=== PATIENT | female | born 1980 | race Caucasian/White ===

== ENCOUNTER → 2017-03-08 | Outpatient (CLI) | payer OTHER ==
[~2017-03-08] MED LIST: AMOX500T2 PO; CA C1TAB80 PO; CATHETER FLUSH 10 ML SYR IV PRN; IOHEXOL 350 MG/ML 100 ML (OMNIPAQUE 350) VIAL IV ONE; LINA145C PO; NS 100 ML (IVPB) BAG IV ONE; POLY119P5 PO; PRD20T PO; PRENATAL VITAMINS; XANAX
[2017-03-08 09:14] LABS: MEAN PLATELET VOLUME 10.5 FL (7.4-10.4); RED BLOOD COUNT 4.35 10^6/uL (4.35-5.85); RED CELL DISTRIBUTION WIDTH 14.9 % (10.0-14.5); WHITE BLOOD COUNT 8.5 10^3/uL (4.3-11.0)
[2017-03-08 09:27] LABS: ALANINE AMINOTRANSFERASE 10 U/L (0-55); ALBUMIN 4.1 G/DL (3.2-4.5); ANION GAP 7 MMOL/L (5-14); ASPARTATE AMINO TRANSFERASE 18 U/L (5-34); BILIRUBIN,TOTAL 2.3 MG/DL (0.1-1.0); BLOOD UREA NITROGEN 8 MG/DL (7-18); BUN/CREATININE RATIO 9; CALCIUM 8.7 MG/DL (8.5-10.1); CARBON DIOXIDE 26 MMOL/L (21-32); CHLORIDE 107 MMOL/L (98-107); CREATININE SERUM 0.87 MG/DL (0.60-1.30); GFR ESTIMATED > 60; GLUCOSE 80 MG/DL (70-105); POTASSIUM 3.7 MMOL/L (3.6-5.0); SODIUM 140 MMOL/L (135-145); TOTAL PROTEIN 6.2 G/DL (6.4-8.2)
--- NOTE | 2017-03-08 11:53 | Diagnostic Imaging Report ---
PROCEDURE: CT abdomen and pelvis with contrast. TECHNIQUE: Multiple contiguous axial images were obtained through the abdomen and pelvis after administration of intravenous contrast. INDICATION: Abdominal pain. 100 mL of Omnipaque 350 is administered intravenously. COMPARISON: Comparison exam from 08/15/2013 is reviewed. FINDINGS: The lung bases are clear. The liver, the gallbladder, the spleen, and adrenal glands appear unremarkable. The kidneys have symmetric enhancement and contrast excretion. There is a 8 mm lower pole right kidney hypodense lesion too small to accurately characterize slightly more prominent compared to 2013, it is likely a cyst. The abdominal aorta is normal in caliber. No para-aortic significantly enlarged lymph node is seen. There is a small amount of free fluid in the pelvis in the cul-de-sac and superior to the urinary bladder. Adjacent right ovarian prominent follicle measuring 2.6 cm immediately beside the fluid superior to the urinary bladder is seen likely related to partially ruptured follicle or ovarian cyst. There is no solid mass identified. No bowel obstruction. The appendix appears normal. The osseous structures appear grossly unremarkable. IMPRESSION: Small to moderate amount of free pelvic fluid in the pelvis and the cul-de-sac and adjacent to the right ovary likely related to a right ovarian cyst. Dictated by: Dictated on workstation # [id number]
== END ==
LOC: RAD 08:47
PROVIDERS: ATTEND Nurse Practitioner
DX: R10.9 Unspecified abdominal pain (principal)
CPT/HCPCS: 36415; 74177; 80053; 85027

== ENCOUNTER 2017-05-06 06:24 | Emergency (ER) | payer SELFPAY ==
[~2017-05-06] VITALS: Ht 160 cm; Wt 52.2 kg
[~2017-05-06 06:24] MED LIST changes: -CATHETER FLUSH 10 ML SYR IV PRN; -IOHEXOL 350 MG/ML 100 ML (OMNIPAQUE 350) VIAL IV ONE; -NS 100 ML (IVPB) BAG IV ONE
--- NOTE | 2017-05-06 06:55 | ED EENT ---
History of Present Illness General Chief Complaint: Ear Problems Stated Complaint: LEFT EAR PAIN Nursing Triage Note: PATIENT C/O LEFT EAR PAIN AND STATES THAT IT WOKE HER UP AT 0600. SHE STATES THAT SHE WAS FINE WHEN SHE WENT TO BED LAST NIGHT. Source: patient Exam Limitations: no limitations History of Present Illness Time seen by provider: 06:51 Initial Comments The patient is a 36-year-old white female who presents with complaints of left ear pain. She reports that she was awakened at 0600 with excruciating pain in her left ear. She denies any upper respiratory infections sinus infections fever. There has been no drainage. Timing/Duration: abrupt, this morning Location: ear (L) Prearrival Treatment: no prearrival treatment Associated Symptoms: denies symptoms Allergies and Home Medications Allergies Coded Allergies: NKANo Known Allergies (Verified Allergy, Unknown, 03/02/07) Home Medications Amoxicillin 500 Mg Tablet, 500 MG PO BID, (Reported) take for 10 days, started 02/24/16 Ca Carbonate/Vitamin D3/Vit K 1 Each Tab.chew, 1 EACH PO DAILY, (Reported) Linaclotide 145 Mcg Capsule, 145 MCG PO DAILY, (Reported) Polyethylene Glycol 3350 119 Gm Powder, 7 GM PO DAILY, (Reported) Review of Systems Constitutional: no symptoms reported Eyes: No Symptoms Reported Ears: See HPI Nose: no symptoms reported Mouth: no symptoms reported Throat: no symptoms reported Respiratory: no symptoms reported Cardiovascular: no symptoms reported Past Bonbmao-Igkdff-Xriiln Hx Patient Social History Alcohol Use: Denies Use Recreational Drug Use: Yes Smoking Status: Current Everyday Smoker Type Used: Cigarettes Recent Foreign Travel: No Contact w/Someone Who Travel: No Recent Infectious Disease Expo: No Recent Hopitalizations: No Surgeries HX Surgeries: Yes (WISDOM TEETH, LSO, BLADDER TIE UP X2) Respiratory Hx Respiratory Disorders: No (EXCERISED INDUCED ASTHMA) Respiratory Disorders: Asthma Cardiovascular Hx Cardiac Disorders: No Neurological Hx Neurological Disorders: Yes Reproductive System Female Reproductive Disorders: Endometriosis Genitourinary Hx Genitourinary Disorders: Yes Gastrointestinal Hx Gastrointestinal Disorders: No (ABD PAIN, CHRONIC CONSTIPATION) Gastrointestinal Disorders: Chronic Constipation Musculoskeletal Hx Musculoskeletal Disorders: No Endocrine Hx Endocrine Disorders: No Psychosocial Hx Psychiatric Problems: Yes Physical Exam Vital Signs Vital Sign - Last 12Hours 05/06/17 06:31 Temp 98.0 Pulse 79 Resp 16 B/P (MAP) 101/65 Pulse Ox 98 O2 Delivery Room Air General Appearance: mild distress Eyes: bilateral eye normal inspection Ears: left ear foreign body Nose: normal inspection Mouth/Throat: normal mouth inspection, pharynx normal, dental tenderness, excessive drooling, foreign body, mandibular swelling Neck: non-tender, full range of motion, supple, normal inspection Cardiovascular: normal peripheral pulses, regular rate, rhythm, no edema, no gallop, no JVD, no murmur Respiratory: chest non-tender, lungs clear, normal breath sounds, no respiratory distress, no accessory muscle use Impaction the left ear canal consistent with cerumen Progress/Results/Core Measures Results/Orders My Orders Orders - ERENDIRA GOMEZ MD Docusate Sodium Oral Solution (Colace Or (05/06/17 06:58) Medications Given in ED Current Medications Medications Dose Ordered Sig/Toyin Route Start Time Stop Time Status Last Admin Dose Admin Docusate Sodium 100 mg STK-MED ONCE .ROUTE 05/06/17 06:58 05/06/17 07:03 DC 05/06/17 07:05 100 MG Vital Signs/I&O Vital Sign - Last 12Hours 05/06/17 06:31 Temp 98.0 Pulse 79 Resp 16 B/P (MAP) 101/65 Pulse Ox 98 O2 Delivery Room Air Blood Pressure Mean: 77 Departure Communication Progress Notes The cerumen was softened with docusate over 30 minutes. The canal was then irrigated with some return. It was then possible to see the TM partially. Additional docusate will be instilled at home. Impression Impression: Primary Impression: Impacted cerumen Disposition: 01 HOME, SELF-CARE Condition: Stable/Unchanged Departure-Patient Inst. Referrals: NICHOLE FREEMAN DO (PCP) Primary Care Physician REJI KNOX APRN (Family) Primary Care Physician Patient Instructions: Ear Wax Impaction (DC) Add. Discharge Instructions: All discharge instructions reviewed with patient and/or family. Voiced understanding. On return here home instill more docusate and leave it for 30 minutes to an hour. You may then attempted to irrigate again. ERENDIRA GOMEZ MD May 06, 2017 06:55
[2017-05-06] MEDS ORDERED: DOCUSATE SODIUM 10 MG/ML 10 ML UDC (COLACE) ONE (06:58)
[2017-05-06 08:15] VITALS: BP 101/65
--- OUTSIDE RECORDS SUMMARY | 2017-05-11 18:43 | XMS REPORT | Continuity of Care Document ---
Author Author [facility] Address Unknown Phone Unavailable Allergies Active Description Code Type Severity Reaction Onset Reported/Identified Relationship to Patient Clinical Status Yes NKANo Known Allergies NKA Miscellaneous Allergy Unknown N/ A 03/02/2007 Medications Problems Date Dx Coded Attending Type Code Diagnosis Diagnosed By 11/27/2009 RAYMUNDO OLIVAS APRN A 789.00 abdominal pain 11/27/2009 NICHOLE FREEMAN DO K 789.00 abdominal pain 11/27/2009 AYESHA FREEMAN DOA K 789.00 abdominal pain 11/27/2009 FREEMAN AYESHA CUIA K 789.00 abdominal pain 11/27/2009 VEGA WAN, SYEDA A 789.00 abdominal pain 11/27/2009 VEGA WAN, SYEDA A 789.00 abdominal pain 11/27/2009 FREEMAN AYESHA CUIA K 789.00 abdominal pain 04/16/2011 SUMMER OLIVAS APRNYL A 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) 04/16/2011 FREEMAN DO NICHOLE K 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) 04/16/2011 FREEMAN AYESHA CUIA K 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) 04/16/2011 FREEMAN AYESHA CUIA K 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) 04/16/2011 VEGA APRN, SYEDA A 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) 04/16/2011 VEGA APRN, SYEDA A 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) 04/16/2011 FREEMAN AYESHA CUIA K 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) 08/04/2011 RAYMUNDO OLIVAS APRN E905.1 INJURY CAUSED BY ANIMAL VENOMOUS SPIDER BITE 08/04/2011 NICHOLE FREEMAN DO E905.1 INJURY CAUSED BY ANIMAL VENOMOUS SPIDER BITE 08/04/2011 FREEMAN DO, NICHOLE K E905.1 INJURY CAUSED BY ANIMAL VENOMOUS SPIDER BITE 08/04/2011 FREEMAN DO, NICHOLE K E905.1 INJURY CAUSED BY ANIMAL VENOMOUS SPIDER BITE 08/04/2011 VEGA SALES CONSULTING DIRECTOR, SYEDA A E905.1 INJURY CAUSED BY ANIMAL VENOMOUS SPIDER BITE 08/04/2011 VEGA SALES CONSULTING DIRECTOR, SYEDA A E905.1 INJURY CAUSED BY ANIMAL VENOMOUS SPIDER BITE 08/04/2011 FREEMAN DO, NICHOLE K E905.1 INJURY CAUSED BY ANIMAL VENOMOUS SPIDER BITE 11/03/2011 RAJOTTE SALES CONSULTING DIRECTOR, RAYMUNOD A 599.0 URINARY TRACT INFECTION 11/03/2011 RAJOTTE SALES CONSULTING DIRECTOR, RAYMUNDO A 788.1 pain during urination (dysuria) 11/03/2011 FREEMAN DO, NICHOLE K 599.0 URINARY TRACT INFECTION 11/03/2011 FREEMAN DO, NICHOLE K 788.1 pain during urination (dysuria) 11/03/2011 FREEMAN DO, NICHOLE K 599.0 URINARY TRACT INFECTION 11/03/2011 FREEMAN DO, NICHOLE K 788.1 pain during urination (dysuria) 11/03/2011 FREEMAN DO, NICHOLE K 599.0 URINARY TRACT INFECTION 11/03/2011 FREEMAN DO, NICHOLE K 788.1 pain during urination (dysuria) 11/03/2011 VEGA SALES CONSULTING DIRECTOR, SYEDA A 599.0 URINARY TRACT INFECTION 11/03/2011 VEGA SALES CONSULTING DIRECTOR, SYEDA A 788.1 pain during urination (dysuria) 11/03/2011 VEGA SALES CONSULTING DIRECTOR, SYEDA A 599.0 URINARY TRACT INFECTION 11/03/2011 VEGA SALES CONSULTING DIRECTOR, SYEDA A 788.1 pain during urination (dysuria) 11/03/2011 FREEMAN DO, NICHOLE K 599.0 URINARY TRACT INFECTION 11/03/2011 FREEMAN DO, NICHOLE K 788.1 pain during urination (dysuria) 07/04/2012 RAJVINAYAKE SALES CONSULTING DIRECTOR, RAYMUNDO A 729.5 PAIN IN LIMB 07/04/2012 FREEMAN DO, NICHOLE K 729.5 PAIN IN LIMB 07/04/2012 FREEMAN DO, NICHOLE K 729.5 PAIN IN LIMB 07/04/2012 FREEMAN DO, NICHOLE K 729.5 PAIN IN LIMB 07/04/2012 VEGA SALES CONSULTING DIRECTOR, SYEDA A 729.5 PAIN IN LIMB 07/04/2012 VEGA SALES CONSULTING DIRECTOR, SYEDA A 729.5 PAIN IN LIMB 07/04/2012 FREEMAN DO, NICHOLE K 729.5 PAIN IN LIMB 04/28/2013 RAJOTTE SALES CONSULTING DIRECTOR, RAYMUNDO A 305.1 TOBACCO ABUSE 04/28/2013 RAJOTTE SALES CONSULTING DIRECTOR, RAYMUNDO A 466.0 BRONCHITIS, ACUTE 04/28/2013 RAJOTTE SALES CONSULTING DIRECTOR, RAYMUNDO A E884.9 OTHER ACCIDENTAL FALL FROM ONE LEVEL TO ANOTHER 04/28/2013 RAJOTTE SALES CONSULTING DIRECTOR, RAYMUNDO A V65.42 COUNSELING - SMOKING CESSATION 04/28/2013 FREEMAN DO, NICHOLE K 305.1 TOBACCO ABUSE 04/28/2013 FREEMAN DO, NICHOLE K 466.0 BRONCHITIS, ACUTE 04/28/2013 FREEMAN DO, NICHOLE K E884.9 OTHER ACCIDENTAL FALL FROM ONE LEVEL TO ANOTHER 04/28/2013 FREEMAN DO, NICHOLE K V65.42 COUNSELING - SMOKING CESSATION 04/28/2013 FREEMAN DO, NICHOLE K 305.1 TOBACCO ABUSE 04/28/2013 FREEMAN DO, NICHOLE K 466.0 BRONCHITIS, ACUTE 04/28/2013 FREEMAN DO, NICHOLE K E884.9 OTHER ACCIDENTAL FALL FROM ONE LEVEL TO ANOTHER 04/28/2013 FREEMAN DO, NICHOLE K V65.42 COUNSELING - SMOKING CESSATION 04/28/2013 FREEMAN DO, NICHOLE K 305.1 TOBACCO ABUSE 04/28/2013 FREEMAN DO, NICHOLE K 466.0 BRONCHITIS, ACUTE 04/28/2013 FREEMAN DO, NICHOLE K E884.9 OTHER ACCIDENTAL FALL FROM ONE LEVEL TO ANOTHER 04/28/2013 FREEMAN DO, NICHOLE K V65.42 COUNSELING - SMOKING CESSATION 04/28/2013 VEGA SALES CONSULTING DIRECTOR, SYEDA A 305.1 TOBACCO ABUSE 04/28/2013 VEGA SALES CONSULTING DIRECTOR, SYEDA A 466.0 BRONCHITIS, ACUTE 04/28/2013 VEGA SALES CONSULTING DIRECTOR, SYEDA A E884.9 OTHER ACCIDENTAL FALL FROM ONE LEVEL TO ANOTHER 04/28/2013 VEGA SALES CONSULTING DIRECTOR, SYEDA A V65.42 COUNSELING - SMOKING CESSATION 04/28/2013 VEGA SALES CONSULTING DIRECTOR, SYEDA A 305.1 TOBACCO ABUSE 04/28/2013 VEGA SALES CONSULTING DIRECTOR, SYEAD A 466.0 BRONCHITIS, ACUTE 04/28/2013 VEGA SALES CONSULTING DIRECTOR, SYEDA A E884.9 OTHER ACCIDENTAL FALL FROM ONE LEVEL TO ANOTHER 04/28/2013 VEGA SALES CONSULTING DIRECTOR, SYEDA A V65.42 COUNSELING - SMOKING CESSATION 04/28/2013 FREEMAN DO, NICHOLE K 305.1 TOBACCO ABUSE 04/28/2013 FREEMAN DO, NICHOLE K 466.0 BRONCHITIS, ACUTE 04/28/2013 FREEMAN DO, NICHOLE K E884.9 OTHER ACCIDENTAL FALL FROM ONE LEVEL TO ANOTHER 04/28/2013 FREEMAN DO, NICHOLE K V65.42 COUNSELING - SMOKING CESSATION 08/15/2013 FREEMAN DO, NICHOLE K 789.07 ABDOMINAL PAIN GENERALIZED 08/15/2013 FREEMAN DO, NICHOLE K 789.07 ABDOMINAL PAIN GENERALIZED 08/15/2013 FREEMAN DO, NICHOLE K 789.07 ABDOMINAL PAIN GENERALIZED 08/15/2013 VEGA SALES CONSULTING DIRECTOR, SYEDA A 789.07 ABDOMINAL PAIN GENERALIZED 08/15/2013 VEGA SALES CONSULTING DIRECTOR, SYEDA A 789.07 ABDOMINAL PAIN GENERALIZED 08/15/2013 FREEMAN DO, NICHOLE K 789.07 ABDOMINAL PAIN GENERALIZED 10/17/2013 FREEMAN DO, NICHOLE K 611.71 MASTODYNIA 10/17/2013 FREEMAN DO, NICHOLE K 780.79 OTHER MALAISE AND FATIGUE 10/17/2013 FREEMAN DO, NICHOLE K 785.6 LYMPHADENOPATHY 10/17/2013 FREEMAN DO, NICHOLE K 611.71 MASTODYNIA 10/17/2013 FREEMAN DO, NICHOLE K 780.79 OTHER MALAISE AND FATIGUE 10/17/2013 FREEMAN DO, NICHOLE K 785.6 LYMPHADENOPATHY 10/17/2013 VEGA SALES CONSULTING DIRECTOR, SYEDA A 611.71 MASTODYNIA 10/17/2013 VEGA SALES CONSULTING DIRECTOR, SYEDA A 780.79 OTHER MALAISE AND FATIGUE 10/17/2013 VEGA SALES CONSULTING DIRECTOR, SYEDA A 785.6 LYMPHADENOPATHY 10/17/2013 VEGA SALES CONSULTING DIRECTOR, SYEDA A 611.71 MASTODYNIA 10/17/2013 VEGA SALES CONSULTING DIRECTOR, SYEDA A 780.79 OTHER MALAISE AND FATIGUE 10/17/2013 VEGA SALES CONSULTING DIRECTOR, SYEDA A 785.6 LYMPHADENOPATHY 10/17/2013 FREEMAN DO, NICHOLE K 611.71 MASTODYNIA 10/17/2013 FREEMAN DO, NICHOLE K 780.79 OTHER MALAISE AND FATIGUE 10/17/2013 NICHOLE FREEMAN DO K 785.6 LYMPHADENOPATHY 05/15/2014 VEGA WAN SYEDA A 788.1 DYSURIA 05/15/2014 NICHOLE FREEMAN DO K 788.1 DYSURIA 10/07/2014 Ot 729.5 10/07/2014 SHWETHA BLAIR SALES CONSULTING DIRECTOR Ot 620.2 10/07/2014 VINI PA CARLINE M Ot 611.71 10/07/2014 VINI PA, CARLINE M Ot V16.3 10/07/2014 VINI PA, CARLINE M Ot V16.41 10/09/2014 NICHOLE FREEMAN DO K 848.8 OTHER SPECIFIED SITES OF SPRAINS AND STRAINS 10/11/2014 Ot 729.5 10/11/2014 SHWETHA BLAIR SALES CONSULTING DIRECTOR Ot 620.2 10/11/2014 VINI PA CARLINE M Ot 611.71 10/11/2014 VINI PA CARLINE M Ot V16.3 10/11/2014 VINI PA, CARLINE M Ot V16.41 10/11/2014 Ot 729.5 10/11/2014 SHWETHA BLAIR SALES CONSULTING DIRECTOR Ot 620.2 10/11/2014 VINI PA, CARLINE M Ot 611.71 10/11/2014 VINI PA, CARLINE M Ot V16.3 10/11/2014 VINI PA, CARLINE M Ot V16.41 01/17/2016 Ot 729.5 01/17/2016 SHWETHA BLAIR SALES CONSULTING DIRECTOR Ot 620.2 01/17/2016 VINI PA CARLINE M Ot 611.71 01/17/2016 VINI PA, CARLINE M Ot V16.3 01/17/2016 VINI PA, CARLINE M Ot V16.41 01/20/2016 Ot 729.5 01/20/2016 SHWETHA BLAIR SALES CONSULTING DIRECTOR Ot 620.2 01/20/2016 VINI PA, CARLINE M Ot 611.71 01/20/2016 VINI PA, CARLINE M Ot V16.3 01/20/2016 VINI PA, CARLINE M Ot V16.41 01/20/2016 Ot 729.5 01/20/2016 SHWETHA BLAIR SALES CONSULTING DIRECTOR Ot 620.2 01/20/2016 CARLINE MUKHERJEE Ot 611.71 01/20/2016 CARLINE MUKHERJEE Ot V16.3 01/20/2016 CARLINE MUKHERJEE Ot V16.41 02/27/2016 Ot 729.5 02/27/2016 SHWETHA BLAIR SALES CONSULTING DIRECTOR Ot 620.2 02/27/2016 CARLINE MUKHERJEE Ot 611.71 02/27/2016 CARLINE MUKHERJEE Ot V16.3 02/27/2016 CARLINE MUKHERJEE Ot V16.41 02/27/2016 MORRIS GAMEZ APRN Ot Z09 02/27/2016 MORRIS GAMEZ APRN Ot Z87.42 02/27/2016 MORRIS GAMEZ APRN Ot Z90.711 02/27/2016 NIKA VINCENT DO Ot Z01.818 ENCOUNTER FOR OTHER PREPROCEDURAL EXAMIN 02/28/2016 NIKA VINCENT DO Ot Z01.818 03/03/2016 NIKA VINCENT DO Ot K59.00 CONSTIPATION, UNSPECIFIED 03/03/2016 ROME NIKA CUI Ot K92.1 MELENA 03/04/2016 ROME NIKA CUI Ot K59.00 03/04/2016 ROME NIKA CUI Ot K92.1 03/09/2016 ROME NIKA CUI Ot K59.00 CONSTIPATION, UNSPECIFIED 03/09/2016 ROME NIKA CUI Ot K92.1 MELENA 05/08/2016 Ot 729.5 PAIN IN LIMB 05/08/2016 SHWETHA BLAIR APRN Ot 620.2 OVARIAN CYST NEC/NOS 05/08/2016 CARLINE MUKHERJEE Ot 611.71 MASTODYNIA 05/08/2016 CARLINE MUKHERJEE Ot V16.3 FAMILY HX-BREAST MALIG 05/08/2016 CARLINE MUKHERJEE Ot V16.41 FAM HX-MAL NEOP-OVARY 05/08/2016 MORRIS GAMEZ APRN Ot Z09 ENCNTR FOR F/U EXAM AFT TRTMT FOR COND O 05/08/2016 MORRIS GAMEZ APRN Ot Z87.42 PERSONAL HISTORY OF OTH DISEASES OF THE 05/08/2016 MORRIS GAMEZ SALES CONSULTING DIRECTOR Ot Z90.711 ACQUIRED ABSENCE OF UTERUS WITH REMAININ 07/28/2016 Ot 729.5 PAIN IN LIMB 07/28/2016 SHWETHA BLAIR SALES CONSULTING DIRECTOR Ot 620.2 OVARIAN CYST NEC/NOS 03/08/2017 Ot 729.5 PAIN IN LIMB 03/08/2017 SHWETHA BLAIR SALES CONSULTING DIRECTOR Ot 620.2 OVARIAN CYST NEC/NOS 03/08/2017 CARLINE MUKHERJEE Ot 611.71 MASTODYNIA 03/08/2017 CARLINE MUKHERJEE Ot V16.3 FAMILY HX-BREAST MALIG 03/08/2017 CARLINE MUKHERJEE Ot V16.41 FAM HX-MAL NEOP-OVARY 03/08/2017 MORRIS GAMEZ SALES CONSULTING DIRECTOR Ot Z09 ENCNTR FOR F/U EXAM AFT TRTMT FOR COND O 03/08/2017 MORRIS GAMEZ APRN Ot Z87.42 PERSONAL HISTORY OF OTH DISEASES OF THE 03/08/2017 MORRIS GAMEZ SALES CONSULTING DIRECTOR Ot Z90.711 ACQUIRED ABSENCE OF UTERUS WITH REMAININ 03/23/2017 NWAGWU, ISIDORE O SALES CONSULTING DIRECTOR Ot R10.9 UNSPECIFIED ABDOMINAL PAIN 03/23/2017 Ot 729.5 PAIN IN LIMB 03/23/2017 SHWETHA BLAIR SALES CONSULTING DIRECTOR Ot 620.2 OVARIAN CYST NEC/NOS 03/23/2017 CARLINE MUKHERJEE Ot 611.71 MASTODYNIA 03/23/2017 CARLINE MUKHERJEE Ot V16.3 FAMILY HX-BREAST MALIG 03/23/2017 CARLINE MUKHERJEE Ot V16.41 FAM HX-MAL NEOP-OVARY 03/23/2017 MORRIS GAMEZ SALES CONSULTING DIRECTOR Ot Z09 ENCNTR FOR F/U EXAM AFT TRTMT FOR COND O 03/23/2017 MORRIS GAMEZ SALES CONSULTING DIRECTOR Ot Z87.42 PERSONAL HISTORY OF OTH DISEASES OF THE 03/23/2017 MORRIS GAMEZ SALES CONSULTING DIRECTOR Ot Z90.711 ACQUIRED ABSENCE OF UTERUS WITH REMAININ 03/23/2017 NWAGWU, ISIDORE O SALES CONSULTING DIRECTOR Ot R10.9 UNSPECIFIED ABDOMINAL PAIN 05/05/2017 JOSE DUMONT APRN Ot R10.9 UNSPECIFIED ABDOMINAL PAIN Procedures Code [place] [address] XRAY ANKLE L COMP MIN, 3 VIEWS 05/01/[address] ABDOMEN & PELVIS W/ & W/O CONTRAST 08/15/2013 96145 UA W/ CULTURE IF INDICATED 08/15/2013 00259 ROUTINE VENIPUNCTURE 10/17/2013 4424602 GFR CALC (RESULT ONLY) 10/17/2013 11373 CMP 10/17/2013 41946 CBC 10/17/2013 94529 MONO TEST (RML) 10/17/2013 00510 TSH 10/17/2013 31007 MAMMOGRAM DX, BABAR 11/18/2013 48167 UA W/ CULTURE IF INDICATED 05/08/2014 08670 THERAPUTIC INJ SQ/IM 05/08/2014 J0696 ROCEPHIN INJ 1 g 05/08/2014 94042 CULTURE URINE 73633 URINE DRUG SCREEN (IN-HOUSE) 05/15/2014 92002 UA W/ CULTURE IF INDICATED 05/15/2014 45648 CULTURE URINE Results Encounters ACCT No. Visit Date/Time Discharge Status Pt. Type Provider Facility Loc./Unit Complaint [id number] 10/09/2014 14:15:00 10/09/2014 23: 59:59 CLS Outpatient NICHOLE FREEMAN DO [id number] 05/15/2014 17:38:00 05/15/2014 23: 59:59 CLS Outpatient SYEDA FERRARI APRN [id number] 05/08/2014 11:32:00 05/08/2014 23: 59:59 CLS Outpatient SYEDA FERRARI APRN [id number] 11/18/2013 13:04:00 11/18/2013 23: 59:59 CLS Outpatient NICHOLE FREEMAN DO [id number] 10/17/2013 13:16:00 10/17/2013 23: 59:59 CLS Outpatient NICHOLE FREEMAN DO [id number] 08/15/2013 11:47:00 08/15/2013 23: 59:59 CLS Outpatient NICHOLE FREEMAN DO [id number] 04/28/2013 11:12:00 04/28/2013 23: 59:59 CLS Outpatient RAYMUNDO OLIVAS APRN
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
== END 2017-05-06 08:15 | disposition home or self-care (01) ==
LOC: EDUNIT# 06:24 → ER 06:26
DX: H61.22 Impacted cerumen, left ear (principal); J45.998 Other asthma; F17.210 Nicotine dependence, cigarettes, uncomplicated
CPT/HCPCS: 99282